=== PATIENT | female | born 1980 | race Caucasian/White ===

== ENCOUNTER → 2017-11-23 | Outpatient (CLI) | payer BC | LOC: CT 16:16 → GMATM 19:18 | PROVIDERS: ATTEND Nurse Practitioner Family | DX: N30.00 Acute cystitis without hematuria (principal) ==

== ENCOUNTER → 2017-12-08 | Outpatient (CLI) | payer BC | LOC: GMAM 14:26 | PROVIDERS: ATTEND Family Medicine | DX: N39.0 Urinary tract infection, site not specified (principal) ==

== ENCOUNTER 2019-07-28 19:34 | Emergency (ER) | payer BC ==
--- NOTE | 2019-07-28 20:06 | ED.PDOC ---
History of Present Illness - General Chief Complaint: Cardiovascular Problem Stated Complaint: my heart is flip flopping Time Seen by Provider: 07/28/19 19:36 Source: patient, RN notes reviewed, Vital Signs reviewed Exam Limitations: no limitations - History of Present Illness Initial Comments: This is a 39-year-old female with history of hypertension, recent gallbladder surgery 4 weeks ago, presenting to the emergency department with 2 days of palpitations. She describes the symptoms as "her heart flip flopping and skipping beats". She denies any chest pain or leg swelling. She states she feels slightly short of breath when the palpitations are present. No syncope. No leg swelling. No fevers, no sick contacts, no recent traveling. No previous history of heart palpitations. She states she has been taking her blood pressure medications as prescribed. Allergies/Adverse Reactions: Allergies NO KNOWN ALLERGY Allergy (Verified 06/25/19 02:41) Home Medications: Ambulatory Orders RX: Estradiol 2 mg PO DAILY 06/25/19 RX: Lisinopril 10 mg PO DAILY 06/25/19 Metoprolol Succinate [Metoprolol Succinate ER] 50 mg PO DAILY #30 tab 07/28/19 Review of Systems - Review of Systems Constitutional: Denies: chills, fever EENTM: Denies: blurred vision, double vision, ear pain, nose congestion, throat pain Respiratory: States: short of breath. Denies: cough, orthopnea, stridor Cardiology: States: palpitations. Denies: chest pain, edema, syncope Gastrointestinal/Abdominal: Denies: abdominal pain, constipation, diarrhea, nausea, vomiting Genitourinary: Denies: dysuria, hematuria Musculoskeletal: Denies: joint pain, joint swelling, muscle pain, muscle stiffness Skin: Denies: lesions, rash Neurological: Denies: headache, numbness, paresthesia, pre-existing deficit, seizure Endocrine: States: no symptoms reported Hematologic/Lymphatic: States: no symptoms reported Past Medical History (General) - Patient Medical History Hx Seizures: No Hx Stroke: No Hx Dementia: No Hx Asthma: No Hx of COPD: No Hx Cardiac Disorders: No Hx Congestive Heart Failure: No Hx Pacemaker: No Hx Hypertension: Yes Hx Thyroid Disease: No Hx Diabetes: No Hx Gastroesophageal Reflux: No Hx Renal Disease: No Hx Cancer: No Hx of HIV: No Hx Hepatitis C: No Hx MRSA: No - Vaccination History Hx Tetanus, Diphtheria Vaccination: No - unknown Hx Influenza Vaccination: No Hx Pneumococcal Vaccination: No Immunizations Up to Date: No - Social History Hx Tobacco Use: No Hx Chewing Tobacco Use: No Hx Alcohol Use: Yes - social Hx Substance Use: No Hx Substance Use Treatment: No Hx Depression: No Hx Physical Abuse: No Hx Emotional Abuse: No Hx Suspected Abuse: No - Female History Patient is a Female of Child Bearing Age (10 -59 yrs old): No - TVH Patient : No - Triage Comment ED Triage Comment: patient reports cholecystectomy in June of 2019 and "disc" surgery in neck Family Medical History - Family History Mother Family History: No Known Physical Exam - Physical Exam General Appearance: Alert, Comfortable Ears, Nose, Throat: normal ENT inspection, normal pharynx Neck: non-tender, full range of motion, supple, other - No thyromegaly or thyroid tenderness Respiratory: chest non-tender, lungs clear, normal breath sounds, no respiratory distress, no accessory muscle use Cardiovascular/Chest: normal peripheral pulses, regular rate, rhythm, no edema, no gallop, no JVD, extra beats Gastrointestinal/Abdominal: non tender, soft Back Exam: normal inspection, no CVA tenderness Extremity: non-tender, normal inspection, no pedal edema Neurologic: no motor/sensory deficits, alert, normal mood/affect, oriented x 3 Skin Exam: normal color, warm/dry Progress - Progress Progress: Patient was rechecked. Discussed plan for low-dose beta-myriam due to frequent PVCs. Discussed plan to replete magnesium. Recommended follow-up with PCP in 3 to 5 days for recheck, will give contact information for cardiology to discuss any further outpatient work-up that might need completing, possible echo/Holter monitor. Strict warnings given to return the emergency room for worsening palpitations, syncope, fever, chest pain, shortness of breath, leg swelling, or any other concerns DDX: PVCs, arrhythmia, low suspicion for PE given normal heart rate and no dyspnea, dehydration, hypokalemia, hypomagnesemia, hypophosphatemia, hypo- /hyperthyroid Marvin Dinero DO [facility] #[id number] - Results/Orders Results/Orders: Initial EKG interpreted by me at 1940. EKG shows a sinus rhythm, rate of 68, normal axis, normal intervals, no ST segment elevations or depressions. Patient with frequent PVCs on cardiac rehab nurse that were not captured on initial EKG. EXAM DESCRIPTION: XR CHEST, 1 VIEW CLINICAL HISTORY: SOB, palpitations TECHNIQUE: Single frontal view of the chest is submitted. COMPARISON: 06/25/2019 FINDINGS: Heart: The cardiothoracic silhouette is within normal limits. Lungs: No focal consolidation. Mediastinum: Unremarkable Pleura: No appreciable effusion. No pneumothorax. Bones: Interposition spacer at C6-C7. No acute fracture. Upper abdomen: Unremarkable IMPRESSION: No acute disease. Electronically signed by: Sammie Farias MD 07/28/2019 8:32 PM CDT 07/28/19 20:00 EKG STAT 07/28/19 20:15 Magnesium Sulfate Premix 2Gm 2 gm Premix Bag 1 bag IVPB ONCE Laboratory Results - last 24 hr 07/28/19 07/28/19 07/28/19 19:43 19:43 19:43 WBC 6.1 RBC 4.34 Hgb 13.7 Hct 40.1 MCV 92.5 MCH 31.6 H MCHC 34.1 RDW 13.8 Plt Count 230 MPV 8.0 Absolute Neuts (auto) 2.60 Absolute Lymphs (auto) 2.20 Absolute Monos (auto) 0.60 Absolute Eos (auto) 0.70 H Absolute Basos (auto) 0.10 Neutrophils % 42.5 Lymphocytes % 36.4 Monocytes % 9.2 H Eosinophils % 10.8 H Basophils % 1.1 Sodium 139 Potassium 3.8 Chloride 102 Carbon Dioxide 29 Anion Gap 11.8 L BUN 21 H Creatinine 0.83 BUN/Creatinine Ratio 25.3 H Random Glucose 94 Serum Osmolality 280.3 Calcium 9.2 Phosphorus 3.9 Magnesium 1.7 L TSH 5.38 Serum HCG, Qual Negative Departure - Departure Clinical Impression: Palpitations, Frequent PVCs, Hypomagnesemia Disposition: Discharge to Home or Self Care Condition: Fair Departure Forms: ED Discharge - Pt. Copy, Patient Portal Self Enrollment Instructions: Ventricular Premature Beats, Palpitations (DC) Diet: resume usual diet Activity: increase activity as tolerated Referrals: Saw Harding MD [Primary Care Provider] - 1-5 Days KYRA RANDOLPH MD [Consulting Staff] - 1-2 Weeks MICHAEL OLSEN [Referring] - 1-2 Weeks Prescriptions: Metoprolol Succinate [Metoprolol Succinate ER] 50 mg PO DAILY #30 tab Home Medications: Ambulatory Orders RX: Estradiol 2 mg PO DAILY 06/25/19 RX: Lisinopril 10 mg PO DAILY 06/25/19 Metoprolol Succinate [Metoprolol Succinate ER] 50 mg PO DAILY #30 tab 07/28/19
[2019-07-28] MEDS ORDERED: MAGNESIUM SULFATE PREMIX 2GM 2 GM in PREMIX BAG 1 BAG IVPB ONE (20:15)
[2019-07-28] MEDS ORDERED: MAGNESIUM SULFATE PREMIX 2GM 50 ML IVPB ONE (20:18)
--- NOTE | 2019-07-28 20:34 | RAD ---
EXAM DESCRIPTION: XR CHEST, 1 VIEW CLINICAL HISTORY: SOB, palpitations TECHNIQUE: Single frontal view of the chest is submitted. COMPARISON: 06/25/2019 FINDINGS: Heart: The cardiothoracic silhouette is within normal limits. Lungs: No focal consolidation. Mediastinum: Unremarkable Pleura: No appreciable effusion. No pneumothorax. Bones: Interposition spacer at C6-C7. No acute fracture. Upper abdomen: Unremarkable IMPRESSION: No acute disease. Electronically signed by: Sammie Farias MD 07/28/2019 8:32 PM CDT
[2019-07-28 21:09] VITALS: BP 127/87; TEMP 98.5; O2SAT 95
== END 2019-07-28 21:18 | disposition home or self-care (01) ==
LOC: ER 19:34
DX: R00.2 Palpitations (principal); E83.42 Hypomagnesemia; I49.3 Ventricular premature depolarization; I10 Essential (primary) hypertension
CPT/HCPCS: 36415; 71045; 80048; 83735; 84100; 84443; 84703; 85025; 93005; J3475

== ENCOUNTER → 2019-08-01 | Outpatient (CLI) | payer BC | DX: R00.2 Palpitations (principal) ==

== ENCOUNTER → 2019-08-04 | Outpatient (CLI) | payer BC | LOC: GMAM 11:07 | PROVIDERS: ATTEND Family Medicine | DX: R94.6 Abnormal results of thyroid function studies (principal); I10 Essential (primary) hypertension ==

== ENCOUNTER → 2019-09-11 | Outpatient (CLI) | payer BC | LOC: GMAM 14:55 | PROVIDERS: ATTEND Family Medicine | DX: E83.42 Hypomagnesemia (principal); I10 Essential (primary) hypertension ==

== ENCOUNTER → 2020-02-19 | Outpatient (CLI) | payer BC | LOC: GMAM 18:34 | PROVIDERS: ATTEND Family Medicine | DX: E83.42 Hypomagnesemia (principal); I10 Essential (primary) hypertension ==